=== PATIENT | female | born 1945 ===

== ENCOUNTER 2023-02-18 10:56 | Outpatient (CLI) | payer OTHER | END 2023-02-18 11:06 | disposition home or self-care (01) | LOC: LAB 10:56 | PROVIDERS: ATTEND Family Medicine | DX: R10.10 Upper abdominal pain, unspecified (principal) ==

== ENCOUNTER 2023-02-21 10:15 | Outpatient (CLI) | payer OTHER | END 2023-02-21 10:30 | disposition home or self-care (01) | LOC: TOM 10:15 | PROVIDERS: ATTEND Family Medicine | DX: R10.10 Upper abdominal pain, unspecified (principal) ==

== ENCOUNTER 2023-07-28 08:41 | Outpatient (CLI) | payer OTHER | END 2023-07-28 08:54 | disposition home or self-care (01) | LOC: MAMO-SONO 08:41 | PROVIDERS: ATTEND Family Medicine | DX: N60.11 Diffuse cystic mastopathy of right breast (principal); N60.12 Diffuse cystic mastopathy of left breast; R10.2 Pelvic and perineal pain ==

== ENCOUNTER 2023-07-31 10:01 | Outpatient (CLI) | payer OTHER | END 2023-07-31 10:02 | disposition home or self-care (01) | LOC: NUCLEAR 10:01 | PROVIDERS: ATTEND Family Medicine | DX: M81.0 Age-related osteoporosis without current pathological fracture (principal) ==